=== PATIENT | female | born 1935 | race Caucasian/White ===

== ENCOUNTER 2020-11-27 06:59 | Emergency (ER) | payer OTHER ==
[~2020-11-27] VITALS: Ht 167.6 cm; Wt 81.6 kg
[~2020-11-27 06:59] MED LIST: GLUXR500 PO; GLYB5TAB4 PO; LISI10TA29 PO; LOVA20TA2 PO; NORCO5 PO
[2020-11-27 07:11] VITALS: BP_SYST 184
[2020-11-27] MEDS: IBUPROFEN 400 MG TABLET PO ONE (08:10)
[2020-11-27 08:24] VITALS: BP_SYST 170
== END 2020-11-27 08:24 | disposition home or self-care (01) ==
LOC: SED 06:59
DX: M16.12 Unilateral primary osteoarthritis, left hip (principal); M25.552 Pain in left hip
CPT/HCPCS: 73502; 99283

== ENCOUNTER 2021-05-15 15:50 | Emergency (ER) | payer OTHER ==
[~2021-05-15] VITALS: Ht 167.6 cm; Wt 80.7 kg
[2021-05-15 16:01] VITALS: BP_SYST 202
--- NOTE | 2021-05-15 16:09 | NUR ---
Placed in room 01 . Placed on traffic monitor specialist, blood pressure machine and pulse oximeter. To gown for exam. Side rails up.
--- NOTE | 2021-05-15 16:15 | NUR ---
ALERT, CALM, RESP UNLABORED, SKIN WARM AND DRY. COMMUNICATES CLEARLY IN FULL COMPLETE SENTECES, DENIES CP/SOB
--- NOTE | 2021-05-15 16:36 | NUR ---
UP ASSISTED TO BATHROOM, STEADY GAIT, NO DYSPNEA
--- NOTE | 2021-05-15 16:48 | NUR ---
BACK FROM CT, NO CHANGE IN CONDITION, CALM, ALERT
[2021-05-15 16:53] LABS: BASOPHILS % (AUTO) 0.6 % (0.0-2.0); EOSINOPHILS % (AUTO) 0.4 % (0.0-4.0); HEMATOCRIT 38.5 % (36-48); HEMOGLOBIN 12.8 g/dL (12.0-16.0); LYMPHOCYTES # (AUTO) 0.9 K/uL (1.0-5.5); LYMPHOCYTES % (AUTO) 14.3 % (20.5-51.5); MEAN CORPUSCULAR HEMOGLOBIN 30 pg (27-31); MEAN CORPUSCULAR HGB CONC 33 % (32-36); MEAN CORPUSCULAR VOLUME 90 fL (79.0-98.0); MONOCYTES # (AUTO) 0.6 K/uL (0.0-1.0); MONOCYTES % (AUTO) 9.6 % (1.7-9.3); NEUTROPHILS # (AUTO) 4.9 K/uL (1.8-7.7); NEUTROPHILS % (AUTO) 75.1 % (40.0-70.0); PLATELET COUNT (AUTO) 201 K/uL (130-430); RED BLOOD CELL COUNT(AUTO) 4.28 MIL/uL (4.2-6.2); RED CELL DISTRIBUTION WIDTH 16.4 % (9.0-15.0); WHITE BLOOD COUNT (AUTO) 6.5 K/uL (4.8-10.8)
[2021-05-15 17:02] LABS: ANION GAP 8 (5-15); CHLORIDE 99 mmol/L (98-107); CREATININE 0.84 mg/dL (0.55-1.30); GLUCOSE 169 mg/dL (70-99); POTASSIUM 3.9 mmol/L (3.5-5.1); SODIUM SERUM 133 mmol/L (136-145); UREA NITROGEN, BLOOD 11 mg/dL (8-21)
[2021-05-15 17:09] LABS: INR 1.1 (0.8-1.2); PROTHROMBIN TIME 11.3 SECS (9.5-12.5)
--- NOTE | 2021-05-15 17:10 | NUR ---
VSS, SR ON MONITOR NO ECTOPY, RESP UNLABORED, . COMMUNICATES CLEARLY
[2021-05-15 17:17] LABS: ALANINE AMINOTRANSFERASE 15 U/L (12-78); ALBUMIN 3.7 g/dL (3.4-4.8); ASPARTATE AMINOTRANSFERASE 21 U/L (10-37); TOTAL BILIRUBIN 0.9 mg/dL (0.0-1.0)
--- NOTE | 2021-05-15 17:45 | NUR ---
WOUND REPAIR COMPLETED BY DR ASCENCIO.,TOLERATED WELL
--- NOTE | 2021-05-15 17:58 | NUR ---
FAMILY AT BEDSIDE, PT CALM, ALERT, VISITING
[2021-05-15 18:16] VITALS: BP_SYST 151
--- NOTE | 2021-05-15 18:21 | NUR ---
Patient given written and verbal discharge instructions and verbalizes understanding. ER MD discussed with patient the results and treatment provided. Patient in stable condition. ID arm band removed. Rx of given. Patient educated on pain management and to follow up with PMD. Pain Scale 2/10 Opportunity for questions provided and answered.
[2021-05-15] MEDS ORDERED: BACITRACIN 1 GM OINT TP ONE (18:29)
== END 2021-05-15 18:16 | disposition home or self-care (01) ==
LOC: SED 15:50
DX: S01.01XA Laceration without foreign body of scalp, initial encounter (principal); R55 Syncope and collapse; I10 Essential (primary) hypertension; E11.9 Type 2 diabetes mellitus without complications; Z88.5 Allergy status to narcotic agent; Z79.84 Long term (current) use of oral hypoglycemic drugs; Z79.899 Other long term (current) drug therapy; W18.39XA Other fall on same level, initial encounter; Y93.89 Activity, other specified; Y92.89 Other specified places as the place of occurrence of the external cause; Y99.8 Other external cause status
CPT/HCPCS: 36415; 70450-TC; 71045; 76376; 80053; 82962; 83605; 84484; 85025; 85610-TC; 85730-TC; 93005; 99285

== ENCOUNTER 2023-01-23 17:55 | Inpatient (IN) | payer OTHER ==
[~2023-01-23] VITALS: Ht 167.6 cm; Wt 73.0 kg
[2023-01-23 18:33] VITALS: BP_SYST 187; PULSE 98; RESP 20; TEMP 98; O2SAT 97
[2023-01-23] MEDS ORDERED: ONDANSETRON HCL 4 MG/2 ML VIAL IVP ONE (18:45)
[2023-01-23] MEDS ORDERED: NACL 0.9% 1,000 ML IV ONE ×2 (18:45→20:00)
[2023-01-23] MEDS ORDERED: PANTOPRAZOLE SODIUM 40 MG/VIAL (PROTONIX) IVP ONE (18:45)
[2023-01-23 18:59] LABS: HEMATOCRIT 25.8 % (36-48); HEMOGLOBIN 8.2 g/dL (12.0-16.0); MEAN CORPUSCULAR HEMOGLOBIN 27 pg (27-31); MEAN CORPUSCULAR HGB CONC 32 % (32-36); MEAN CORPUSCULAR VOLUME 85 fL (79.0-98.0); PLATELET COUNT (AUTO) 320 K/uL (130-430); RED BLOOD CELL COUNT(AUTO) 3.04 MIL/uL (4.2-6.2); RED CELL DISTRIBUTION WIDTH 23.7 % (9.0-15.0); WHITE BLOOD COUNT (AUTO) 11.5 K/uL (4.8-10.8)
[2023-01-23 19:09] LABS: ANION GAP 7 (5-15); CALCIUM 8.7 mg/dL (8.4-11.0); CHLORIDE 99 mmol/L (98-107); CREATININE 1.09 mg/dL (0.55-1.30); UREA NITROGEN, BLOOD 22 mg/dL (8-21)
[2023-01-23 19:12] LABS: GLUCOSE 410 mg/dL (70-99)
--- NOTE | 2023-01-23 19:15 | NUR ---
Report received from MINDY Cross. Will continue with POC, VS & Clinical status.
[2023-01-23 19:16] LABS: ALANINE AMINOTRANSFERASE 14 U/L (12-78); ALBUMIN 3.7 g/dL (3.4-4.8); ASPARTATE AMINOTRANSFERASE 21 U/L (10-37); LIPASE 264 U/L (73-393); TOTAL BILIRUBIN 0.8 mg/dL (0.0-1.0)
[2023-01-23 19:25] LABS: BAND % (MANUAL) 4 % (0-6); BASOPHILS % (MANUAL) 1 % (0-2); EOSINOPHILS % (MANUAL) 3 % (0-7); LYMPHOCYTES % (MANUAL) 17 % (20-46); MONOCYTES % (MANUAL) 10 % (0-11)
[2023-01-23 19:26] LABS: METAMYELOCYTES % 1 % (0-0)
--- NOTE | 2023-01-23 19:42 | NUR ---
Patient medicated with Zofran 4 mg IVP & Prontonix 40 mg IVP.
[2023-01-23] MEDS ORDERED: INSULIN REGULAR, HUMAN 10 UNITS/0.1 ML, 3 ML VIAL IVP ONE (20:00)
--- NOTE | 2023-01-23 20:00 | NUR ---
IVF NS 1000 ml bolus given. Regular Insulin 4 units IVP given.
--- NOTE | 2023-01-23 20:00 | NUR ---
No change from previous assessment. Will continue to monitor VS & clinical status.
--- NOTE | 2023-01-23 20:19 | NUR ---
Medication reconciliation completed with information provided by PATIENT. Any prior medication reconciliation on file was reviewed and corrected.
--- NOTE | 2023-01-23 20:19 | NUR ---
Admit bed requested Patient will be admitted to care of . Admitted to TELEMETRY unit. Diagnosis DIABETES UNCONTROLLED, DEHYDRATION Inpatient (Yes or No) Y Observation (Yes or No) N Orientation concerns or request close to nursing station (Yes or No) N Covid Status N/A On vent or bipap N Isolation requirements N Needs a sitter N From Home (Yes or if No enter name of facility) Y Requires Dialysis (Yes or No) N Med Rec Completed (Yes of No) Y
[2023-01-23 20:35] LABS: BILIRUBIN,URINE NEGATIVE (NEGATIVE); CLARITY/URINE CLEAR (CLEAR); COLOR,URINE YELLOW (YELLOW); GLUCOSE,URINE 3+ (NEGATIVE); KETONES,URINE NEGATIVE (NEGATIVE); LEUKOCYTE ESTERASE ,URINE TRACE (NEGATIVE); NITRITE, URINE NEGATIVE (NEGATIVE); PROTEIN URINE TRACE (NEGATIVE); UROBILINOGEN,URINE 0.2 (0.2-1.0)
--- NOTE | 2023-01-23 20:48 | NUR ---
Accu check 200 mg/dl.
[2023-01-23 21:00] LABS: BLOOD, URINE TRACE (NEGATIVE)
[2023-01-23 21:05] LABS: BACTERIA,URINE None Seen /HPF (None Seen); MUCUS,URINE None Seen /LPF (None Seen); RBC,URINE 0-3 /HPF (0-3)
--- NOTE | 2023-01-23 21:55 | NUR ---
Patient admitted to room 122A in stable condition via JUMA kam & EMT.
--- NOTE | 2023-01-23 22:05 | NUR ---
ADMIT NOTE Received SBAR report from JUMA Kimble. Patient is admitted from ER with a diagnosis of uncontrolled DM and Dehydration. She is awake AOx4, and sitting on bed w/legs dangle. Admission process initiated. patient oriented to pain management, safety and call light-teach back done. DaughterCorrine is at bedside but will not be staying,she provided her phone number. V/S taken and BP elvevated, (165/77) will reasses
[2023-01-23 22:16] VITALS: BP_SYST 165; PULSE 98; RESP 2; TEMP 97; O2SAT 96
[2023-01-23] MEDS ORDERED: LORazepam 2 MG/ML VIAL IVP PRN (22:45)
[2023-01-23] MEDS ORDERED: ACETAMINOPHEN 325 MG TABLET PO PRN (22:45)
[2023-01-23] MEDS ORDERED: ONDANSETRON HCL 4 MG/2 ML VIAL IVP PRN (22:45)
[2023-01-23] MEDS: NACL 0.9% 1,000 ML IV SCH (23:19)
--- NOTE | 2023-01-23 23:26 | NUR ---
IVF, FSB A new bag of NS was administered and infusing as ordered. Infusing via LAC, no s/sx of infiltration. Fingerstick BS result of 317mg/dL and covered per sliding scale. Reviewed indication/side effects and she verbalized understanding.
--- NOTE | 2023-01-23 23:30 | NUR ---
V/S B/P 151/73, HR 96, no distress, denies pain.
[2023-01-23] MEDS: INSULIN REGULAR, HUMAN 100 UNITS/ML, 3 ML VIAL (humuLIN R) SUBCUT PRN (23:32)
[2023-01-24] VITALS: BP_SYST 151; PULSE 96; RESP 18; TEMP 97.2; O2SAT 96
--- NOTE | 2023-01-24 01:42 | NUR ---
Restroom Staff assisted patient to restroom, she returned to bed.
--- NOTE | 2023-01-24 02:02 | NUR ---
Consultation Paged Reason for Consultation: leukocytosis Was consult called: Y Person who was notified: Tia Consulting Physician: Kartik Villegas Ordering Physician: Derek Vincent
--- NOTE | 2023-01-24 02:15 | NUR ---
Consultation Paged Reason for Consultation: gastroenteritis Was consult called: Y Person who was notified: Tia Consulting Physician: Rupert Piedra Ordering Physician: Derek Vincent
[2023-01-24 05:36] LABS: BASOPHILS # (AUTO) 0.1 K/uL (0.0-0.2); BASOPHILS % (AUTO) 1.4 % (0.0-2.0); EOSINOPHILS # (AUTO) 0.2 K/uL (0.0-0.4); EOSINOPHILS % (AUTO) 1.7 % (0.0-4.0); HEMATOCRIT 23.4 % (36-48); HEMOGLOBIN 7.5 g/dL (12.0-16.0); LYMPHOCYTES # (AUTO) 1.5 K/uL (1.0-5.5); LYMPHOCYTES % (AUTO) 13.7 % (20.5-51.5); MEAN CORPUSCULAR HEMOGLOBIN 27 pg (27-31); MEAN CORPUSCULAR HGB CONC 32 % (32-36); MEAN CORPUSCULAR VOLUME 85 fL (79.0-98.0); MONOCYTES # (AUTO) 0.6 K/uL (0.0-1.0); MONOCYTES % (AUTO) 5.2 % (1.7-9.3); NEUTROPHILS # (AUTO) 8.6 K/uL (1.8-7.7); PLATELET COUNT (AUTO) 289 K/uL (130-430); RED BLOOD CELL COUNT(AUTO) 2.76 MIL/uL (4.2-6.2); RED CELL DISTRIBUTION WIDTH 23.2 % (9.0-15.0)
[2023-01-24 05:50] LABS: ANION GAP 7 (5-15); CALCIUM 8.3 mg/dL (8.4-11.0); CHLORIDE 104 mmol/L (98-107); CREATININE 0.86 mg/dL (0.55-1.30); GLUCOSE 214 mg/dL (70-99); UREA NITROGEN, BLOOD 14 mg/dL (8-21)
[2023-01-24] MEDS: NACL 0.9% 1,000 ML IV SCH ×3 (06:15→23:34)
[2023-01-24] MEDS: INSULIN REGULAR, HUMAN 100 UNITS/ML, 3 ML VIAL (humuLIN R) SUBCUT PRN ×4 (06:27→23:30)
--- NOTE | 2023-01-24 06:45 | NUR ---
closing note, FSB, daughter called Fingerstick BS result of 217 mg/dL and covered per sliding scale. IVF infusing well, presently denies pain. Resting in comfortable position, no distress. Daughter called to ask for update and answered her questions. Will endorse care
[2023-01-24] MEDS ORDERED: METF-381 PO (06:53)
[2023-01-24 08:19] VITALS: BP_SYST 181; PULSE 118; RESP 16; TEMP 97.5; O2SAT 100
--- NOTE | 2023-01-24 08:42 | NUR ---
CONSULTATION PAGED REASON FOR CONSULTATION:DM WAS CONSULT CALLED?Y PERSON WHO WAS NOTIFIED:MARY GEORGE CONSULTING PHYSICIAN:MARY MCPHERSON LANDMAN SPECIALTY:ENDO LANDMAN PHONE NUMBER:[phone] REQUESTING PHYSICIAN:MORTEZA LOPEZ
[2023-01-24] MEDS ORDERED: LISINOPRIL 10 MG TABLET (PRINIVIL) PO ONE (11:30)
[2023-01-24 12:07] VITALS: BP_SYST 147; PULSE 107; RESP 16; TEMP 97.5; O2SAT 99
[2023-01-24 17:42] VITALS: BP_SYST 151; PULSE 101; RESP 16; TEMP 97.9; O2SAT 94
--- NOTE | 2023-01-24 19:43 | NUR ---
OPENING NOTE PT LYING IN BED AND EYES OPEN. A/OX4. BREATHING EVEN AND NONLABORED. LUNG SOUND CLEAR. O2 SAT 91%. PT DENIED SOB. NO S/S OF ACUTE DISTRESS OR PAIN. SAFETY CHECKS IN PLACE. BED LOWEST POSITION. CALL LIGHT IN REACH. CONTINUE TO MONITOR
[2023-01-24 20:00] VITALS: BP_SYST 141; PULSE 109; RESP 18; TEMP 97.7; O2SAT 91
[2023-01-24] MEDS ORDERED: glyBURIDE 5 MG TABLET PO SCH (21:00)
[2023-01-24] MEDS ORDERED: metFORMIN HCL 500 MG TABLET PO SCH (21:00)
[2023-01-24 23:19] VITALS: BP_SYST 141; PULSE 109; RESP 18; TEMP 97.7; O2SAT 91
[2023-01-25 01:11] VITALS: BP_SYST 156; PULSE 109; RESP 18; TEMP 98; O2SAT 92
--- NOTE | 2023-01-25 04:16 | NUR ---
ROUNDING NOTE PT LYING IN BED AND EYES OPEN. BREATHING EVEN AND NONLABORED ON RA. NO PAIN REPORTED. ACCU CHECK 231. 4 UNITS HUMULIN R GIVEN ORDERED. SAFETY CHECKS IN PLACE. CALL LIGHT IN REACH. CONTINUE TO MONITOR
--- NOTE | 2023-01-25 04:18 | NUR ---
ROUNDING NOTE PT LYING IN BED AND EYES OPEN. IV BEEPING BECAUSE HIGH PRESSURE. EDUCATED PT THAT TRY TO OPEN HER ARM STRAIGHT. SAFETY CHECKS IN PLACE. CONTINUE TO MONITOR
[2023-01-25] MEDS: INSULIN REGULAR, HUMAN 100 UNITS/ML, 3 ML VIAL (humuLIN R) SUBCUT PRN ×2 (06:15→12:31)
--- NOTE | 2023-01-25 07:14 | NUR ---
CLOSING NOTE PT LYING IN BED AND EYES OPEN. ABLE TO AMBULATE WITH ASSIST. BREATHING EVEN AND NONLABORED ON RA. NO S/S OF ACUTE DISTRESS OR PAIN. SAFETY CHECKS IN PLACE. BED LOWEST POSITION. CALL LIGHT IN REACH. ENDORSED TO DAY SHIFT NURSE
[2023-01-25 07:36] LABS: BASOPHILS # (AUTO) 0.2 K/uL (0.0-0.2); BASOPHILS % (AUTO) 1.3 % (0.0-2.0); EOSINOPHILS # (AUTO) 0.2 K/uL (0.0-0.4); EOSINOPHILS % (AUTO) 1.3 % (0.0-4.0); HEMATOCRIT 25.9 % (36-48); HEMOGLOBIN 8.3 g/dL (12.0-16.0); LYMPHOCYTES # (AUTO) 1.5 K/uL (1.0-5.5); LYMPHOCYTES % (AUTO) 11.5 % (20.5-51.5); MEAN CORPUSCULAR HEMOGLOBIN 28 pg (27-31); MEAN CORPUSCULAR HGB CONC 32 % (32-36); MEAN CORPUSCULAR VOLUME 86 fL (79.0-98.0); MONOCYTES # (AUTO) 0.6 K/uL (0.0-1.0); MONOCYTES % (AUTO) 4.5 % (1.7-9.3); NEUTROPHILS # (AUTO) 10.4 K/uL (1.8-7.7); PLATELET COUNT (AUTO) 304 K/uL (130-430); RED BLOOD CELL COUNT(AUTO) 3.02 MIL/uL (4.2-6.2); RED CELL DISTRIBUTION WIDTH 23.4 % (9.0-15.0); WHITE BLOOD COUNT (AUTO) 12.8 K/uL (4.8-10.8)
[2023-01-25 07:57] LABS: ALANINE AMINOTRANSFERASE 13 U/L (12-78); ALBUMIN 3.3 g/dL (3.4-4.8); ANION GAP 9 (5-15); ASPARTATE AMINOTRANSFERASE 24 U/L (10-37); CALCIUM 8.4 mg/dL (8.4-11.0); CHLORIDE 102 mmol/L (98-107); CREATININE 0.99 mg/dL (0.55-1.30); GLUCOSE 295 mg/dL (70-99); THYROID STIMULATING HORMONE 2.48 uIu/mL (0.34-4.82); UREA NITROGEN, BLOOD 13 mg/dL (8-21)
[2023-01-25 08:00] VITALS: BP_SYST 166; PULSE 108; RESP 18; TEMP 98; O2SAT 96
[2023-01-25 08:10] LABS: NEUTROPHILS % (AUTO) 81.4 % (40.0-70.0)
[2023-01-25 08:17] LABS: ERYTHROCYTE SEDIMENTATION RATE 29 MM/HR (0-20)
[2023-01-25] MEDS ORDERED: LISINOPRIL 10 MG TABLET (PRINIVIL) PO SCH (09:00)
[2023-01-25 12:00] VITALS: BP_SYST 152; PULSE 105; RESP 17; TEMP 97.8; O2SAT 97
[2023-01-25] MEDS ORDERED: cefTRIAXone 1 GM in D5W 50 ML IV SCH (12:00)
[2023-01-25] MEDS: NACL 0.9% 1,000 ML IV SCH (12:20)
[2023-01-25 15:29] VITALS: O2SAT 94
[2023-01-25 16:26] VITALS: BP_SYST 149; PULSE 107; RESP 18; TEMP 97.9; O2SAT 96
--- NOTE | 2023-01-25 17:08 | NUR ---
Dietitian Recommendations * GI Soft, CCHO diet, Glucerna TID (ONS yields 660 kcal/day, 30 gm protein/day) * Encourage good PO intakes LP, MS, RD Please refer to Nutrition Assessment for details. Addendum: 01/25/23 at [address] Amended: Links added.
[2023-01-25 19:50] VITALS: BP_SYST 112; PULSE 115; RESP 18; TEMP 96.9; O2SAT 94
--- NOTE | 2023-01-25 19:50 | NUR ---
PM ASSESSMENT; - Patient is awake, alert, oriented X 4. Patient oriented to hospital room, call light, toileting, pain management and safety-teach back done. Patient informed that I (Steph) will be his nurse and that their room number is 122-A. Pt denies any chest pain,pain,sob,or any acute distress. IV site patent no s/s any infiltration noted. Discussed poc,all safety measures, pt verbalized understanding. Side rails x2,Call light within reach. Cont to monitor pt.
--- NOTE | 2023-01-25 20:58 | NUR ---
NOTES; PAGED Arturo MCLAIN REGARDING PT HAD EPISODE OF FORGETFULNESS AND HARSHA DTR IS REQUESTING A NEURO MD CONSULT, WAITING FOR MD TO RETURN CALLBACK.
--- NOTE | 2023-01-25 21:12 | NUR ---
NOTES; PAGED Arturo MCLAIN REGARDING FAMILY IS UPSET STATING THAT PATIENT IS NOT TAKING GOOD CARE AND NOT HAPPY WITH CARE AND WANT TO BE DISCHARGE NOW AND TO BRING TO DIFFERENT HOSPITAL.
--- NOTE | 2023-01-25 21:15 | NUR ---
NOTES; SPOKE WITH Arturo MCLAIN THAT FAMILY WANTS TO TAKE PATIENT HOME AND TO GO DIFFERENT HOSPITAL. MD REFUSED TO ORDER DISCHARGE HOME. MD STATE THAT IF THEY WANTS TO TAKE PATIENT HOME OR WHATEVER.
--- NOTE | 2023-01-25 21:20 | NUR ---
NOTES; AMA; -Informed pt and family that Md won't order discharge. Family was upset and won't listen. Removed IV site of left hand with a whole tip catheter in place, no active bleeding note. Pt is not in any resp distress or acute distress. They took patient from the room and belongings walking out to the hallway to the private car. Family refused me to assist with a wheelchair to private car. Addendum: 01/25/23 at 2137 by [facility], JUMA DENNISON LATE ENTRY--ADDITIONAL NOTES; FAMILY REFUSED TO SIGN AMA FORM AFTER EXPLAINED RISKS AND BENEFITS OF AMA, THEY ARE STILL INSISTING WANTING TO TAKE PATIENT HOME.
--- NOTE | 2023-01-25 21:45 | NUR ---
NOTES; DR. JACKSON, Arturo INFORMED AND AWARED REGARDING PATIENT WAS AMA WITH FAMILY, NO FURTHER ORDER.
== END 2023-01-25 21:20 | disposition left against medical advice (07) | DRG 638 ==
LOC: SED 17:55 → STU 20:11
PROVIDERS: ADMIT Preventive Medicine Preventive Medicine/Occupational Environmental Medicine; ATTEND Preventive Medicine Preventive Medicine/Occupational Environmental Medicine
DX: E11.65 Type 2 diabetes mellitus with hyperglycemia (principal); E87.1 Hypo-osmolality and hyponatremia; N39.0 Urinary tract infection, site not specified; K52.9 Noninfective gastroenteritis and colitis, unspecified; D64.9 Anemia, unspecified; E78.5 Hyperlipidemia, unspecified; I10 Essential (primary) hypertension; K59.00 Constipation, unspecified; D72.829 Elevated white blood cell count, unspecified; R79.89 Other specified abnormal findings of blood chemistry; K31.84 Gastroparesis; E11.43 Type 2 diabetes mellitus with diabetic autonomic (poly)neuropathy; Z79.84 Long term (current) use of oral hypoglycemic drugs; Z79.899 Other long term (current) drug therapy; Z88.5 Allergy status to narcotic agent
CPT/HCPCS: 36415; 71045; 80048; 80053; 81000; 82306; 83690; 84443; 84484; 85007; 85025; 85027; 85651-TC; 86140; 87040; 93005; 96361; 96374; 96375; 99285; C9113; G0378; J0696; J2405; J7060